=== PATIENT | male | born 2000 | race Caucasian/White ===

== ENCOUNTER 2024-08-02 08:56 | Emergency (ER) | payer SELFPAY ==
[2024-08-02] MEDS ORDERED: PSEUDOEPHEDRINE60 MG PO (11:51)
[2024-08-02] MEDS ORDERED: BENZONATATE150 MG PO (11:51)
== END 2024-08-02 12:01 | disposition home or self-care (01) ==
LOC: ED 08:56
DX: J98.8 Other specified respiratory disorders (principal); Z20.822 Contact with and (suspected) exposure to COVID-19; Z88.8 Allergy status to other drugs, medicaments and biological substances

== ENCOUNTER 2024-10-02 03:53 | Emergency (ER) | payer BC ==
[~2024-10-02] VITALS: Ht 177.8 cm; Wt 77.1 kg
[~2024-10-02 03:53] MED LIST: BENZONATATE150 MG PO; PSEUDOEPHEDRINE60 MG PO
[2024-10-02] MEDS ORDERED: Acetaminophen/Hydrocodone 5 MG/325 MG TABLET PO ONE (04:05)
[2024-10-02] MEDS ORDERED: PENICILLIN V POTASSIUM 500 MG TAB PO ONE (04:05)
[2024-10-02] MEDS ORDERED: Ondansetron Hydrochloride 4 MG TAB SL ONE (04:05)
[2024-10-02] MEDS ORDERED: PENICILLIN VK500 MG PO (04:07)
== END 2024-10-02 04:20 | disposition home or self-care (01) ==
LOC: ED 03:53
DX: K04.7 Periapical abscess without sinus (principal); R22.0 Localized swelling, mass and lump, head; Z88.8 Allergy status to other drugs, medicaments and biological substances

== ENCOUNTER 2024-10-06 01:39 | Emergency (ER) | payer BC ==
[~2024-10-06] VITALS: Ht 177.8 cm; Wt 74.8 kg
[~2024-10-06 01:39] MED LIST changes: +PENICILLIN VK500 MG PO
[2024-10-06] MEDS ORDERED: Amoxicillin/Clavulanate Pota 875 MG TAB PO ONE (02:15)
[2024-10-06] MEDS ORDERED: AMOX-CLAV 875-1 EACH PO (02:15)
== END 2024-10-06 02:22 | disposition home or self-care (01) ==
LOC: ED 01:39
DX: K04.7 Periapical abscess without sinus (principal); F17.210 Nicotine dependence, cigarettes, uncomplicated; Z88.8 Allergy status to other drugs, medicaments and biological substances; Z79.899 Other long term (current) drug therapy